=== PATIENT | male | born 1995 ===

== ENCOUNTER 2021-09-01 14:06 | Inpatient (IN) | payer SELFPAY ==
[~2021-09-01] VITALS: Ht 167.6 cm; Wt 89.3 kg
[2021-09-01 15:01] LABS: BASO % 0.3 % (0.0-2.0); EOS # 0.1 K/mm3 (0.0-0.7); EOS % 0.8 % (0.0-4.0); GRAN # 5.7 K/mm3 (1.4-6.5); GRAN % 77.5 % (42.2-75.2); LYMPH % 13.8 % (20.0-51.0); MEAN CELL VOLUME 85 fl (80.0-100.0); MEAN CORPUSCULAR HGB CONC 35 g/dl (33.0-37.0); MEAN PLATELET VOLUME 9.7 fl (7.4-10.4); MONO # 0.5 K/mm3 (0.1-0.6); MONO % 7.3 % (1.7-9.3); PLATELET COUNT 183 K/mm3 (130-400); RED BLOOD COUNT 2.26 M/mm3 (4.20-5.60); REDCELL DISTRIBUTION WIDTH-CV 12.3 % (11.5-14.5)
[2021-09-01 15:02] LABS: HEMATOCRIT 19.2 % (42.0-52.0); HEMOGLOBIN 6.7 g/dl (13.5-18.0); MEAN CORPUSCULAR HEMOGLOBIN 30 pg (27-31)
[2021-09-01 15:22] LABS: ALBUMIN 3.5 gm/dL (3.5-5.0); BILIRUBIN,TOTAL 0.7 mg/dL (0.2-1.2); CALCIUM 6.1 mg/dL (8.4-10.2); CREATININE, serum 15.65 mg/dL (0.72-1.25); MAGNESIUM 2.1 mg/dL (1.6-2.6); POTASSIUM 3.7 mmol/L (3.5-4.5); TOTAL PROTEIN 6.7 gm/dL (6.2-8.1)
[2021-09-01 16:25] LABS: COLLECTION METHOD CLEAN CATCH
[2021-09-01 16:36] LABS: PH 7 (5-8); SQUAMOUS EPITHELIAL None Seen /hpf (0-10); URINE APPEARANCE Clear (CLEAR/HAZY); URINE BACTERIA None Seen /hpf (NONE SEEN); URINE BILIRUBIN Negative (NEGATIVE); URINE BLOOD 2+ (NEGATIVE); URINE COLOR Straw (YELLOW); URINE GLUCOSE Negative (NEGATIVE); URINE KETONE Negative (NEGATIVE); URINE LEUKOCYTE ESTERASE Negative (NEGATIVE); URINE NITRATE Negative (NEGATIVE); URINE PROTEIN(semi-quant) 3+ (NEGATIVE); URINE UROBILINOGEN Negative (NEGATIVE)
[2021-09-01 17:33] LABS: CREATININE, serum 15.63 mg/dL (0.72-1.25)
[2021-09-01 17:34] LABS: FRACTIONAL EXCRETION OF NA+ 21.14 %
[2021-09-01 17:37] VITALS: BP 153/93; PULSE 76; TEMP 99
--- NOTE | 2021-09-01 18:19 | NUR ---
Patient arrived to the unit by bed, alert and oriented x 4, HTN. Denies pain at the moment. Some crams in BLE. He states they go away when he stands up. Continue receiving NS. Assessment intake completed.
--- NOTE | 2021-09-01 18:59 | NUR ---
Blood transusion consent was signed, report given to night RN. Pt aware of blood need.
[2021-09-01 20:03] VITALS: BP 155/90; PULSE 75; TEMP 98.6
[2021-09-01 22:55] VITALS: BP 124/72; PULSE 69; TEMP 98.1
[2021-09-01 23:10] VITALS: BP 144/91; PULSE 66; TEMP 98.5
--- NOTE | 2021-09-01 23:14 | NUR ---
BLOOD TRANSFUSION STARTED AT 60ML/HR. PATIENT TOLERATED THE RATE FOR 15 MINUTES AND INCREASED RATE TO 120ML/HR. WILL FREQUENTLY CHECK ON PATIENT. IS AT BEDSIDE. PT DENIES PAIN, SHORTNESS OF BREATH AND ALL VSS. NO OTHER CONCERNS AT THIS TIME.
[2021-09-01 23:40] VITALS: BP 148/92; PULSE 71; TEMP 98.5
[2021-09-02 00:40] VITALS: BP 145/99; PULSE 64; TEMP 98.3
[2021-09-02 01:01] VITALS: BP 145/99; PULSE 61; TEMP 98.3
[2021-09-02 02:18] LABS: HEMATOCRIT 20.4 % (42.0-52.0); HEMOGLOBIN 7.2 g/dl (13.5-18.0)
--- NOTE | 2021-09-02 09:08 | NUR ---
Patient is resting in bed with at the bedside, alert and oriented x 4, VSS. States he had a good night. No cramps at night. Telemetry in place NSR. Receiving 100 ml/hr NS. Assessment completed, meds provided. No other needs at this time. Call light within reach.
--- NOTE | 2021-09-02 09:21 | NUR ---
cattle care worker met with patient to complete intake and discuss discharge plan. Patient's life partner Alejandra ([phone]) present at bedside. In addition is the patient's brother. Patient lives in [place], [place] and is here for work. Patient is independent with his ADL's and does not utilize any DME to assist with mobility. He has no home oxygen needs. Patient does not have a PCP back home. Patient utilizes [facility] on [address] [place] [address] in [place] for prescriptions. Patient does not have a DPOA-HC established. He is planning on being discharged later today. Discharge plan: Home
--- NOTE | 2021-09-02 10:17 | NUR ---
Initial visit; Patient and family acknowledged [employer] Super[employer] for offering prayer for patient although he is Afghan speaking. [employer] Super[employer] left them smiling.
[2021-09-02 10:57] LABS: BASO % 0.4 % (0.0-2.0); EOS # 0.1 K/mm3 (0.0-0.7); EOS % 1.1 % (0.0-4.0); GRAN # 4.2 K/mm3 (1.4-6.5); GRAN % 75.8 % (42.2-75.2); LYMPH # 0.9 K/mm3 (1.2-3.4); LYMPH % 15.6 % (20.0-51.0); MEAN CELL VOLUME 86 fl (80.0-100.0); MEAN CORPUSCULAR HGB CONC 35 g/dl (33.0-37.0); MEAN PLATELET VOLUME 10.1 fl (7.4-10.4); MONO # 0.4 K/mm3 (0.1-0.6); MONO % 6.9 % (1.7-9.3); PLATELET COUNT 163 K/mm3 (130-400); RED BLOOD COUNT 3.44 M/mm3 (4.20-5.60); REDCELL DISTRIBUTION WIDTH-CV 12.4 % (11.5-14.5)
[2021-09-02 10:58] LABS: ALBUMIN 3.4 gm/dL (3.5-5.0); CALCIUM 7.1 mg/dL (8.4-10.2); CREATININE, serum 15.47 mg/dL (0.72-1.25); HEMATOCRIT 29.4 % (42.0-52.0); MAGNESIUM 2.3 mg/dL (1.6-2.6); MEAN CORPUSCULAR HEMOGLOBIN 30 pg (27-31); PHOSPHOROUS 9.4 mg/dL (2.3-4.7); POTASSIUM 3.8 mmol/L (3.5-4.5)
[2021-09-02 10:59] LABS: HEMOGLOBIN 10.3 g/dl (13.5-18.0)
--- NOTE | 2021-09-02 11:22 | NUR ---
Arvin shipman to Dr Harry Crane to notify Chloride result 85 and labs results in place.
--- NOTE | 2021-09-02 12:52 | NUR ---
Romel collaborated with Luis A and it is unknown what the etiology of his condition is from and may need a possible bx/transplant later in life. 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
--- NOTE | 2021-09-02 18:30 | NUR ---
THE PATIENT HAS LOTS OF QUESTIONS, IT WAS ADVISED THAT THEY WRITE ALL THEIR QUESTIONS DOWN TO DISCUSS WITH THE DOCTORS TOMORROW. THE PATIENT'S DID ASK HOW THE BLOOD WORK WAS, THIS RN LET THEM KNOW THAT THE LABS HAVE NOT CHANGED MUCH, SHOWING LITTLE IMPROVEMENT. THE PATIENT DOES NOT SEEM INTERESTED IN UNDERSTANDING, BUT THE IS VERY CONCERNED. NO OTHER CONCERNS AT THIS TIME. PT DENIES PAIN, SOB AND HAS NO REQUESTS. WILL RETURN FOR ASSESSMENT AND MEDICATIONS.
--- NOTE | 2021-09-02 19:04 | NUR ---
Patient continues in bed with at the beside. Receiving NS 100ML/HR. Denies cramps in his legs. He reported some swelling in face after medication was provided in the afternnoon Benadryl provided. No further episodes. Report given to katiuska LUO.
[2021-09-02 20:45] VITALS: BP 141/97; PULSE 72; TEMP 97.7
[2021-09-03 00:59] VITALS: BP 133/79; PULSE 63; TEMP 98.6
[2021-09-03 04:05] VITALS: BP 147/87; PULSE 71; TEMP 98.8
[2021-09-03 07:43] LABS: BASO % 0.5 % (0.0-2.0); EOS # 0.1 K/mm3 (0.0-0.7); EOS % 1.4 % (0.0-4.0); GRAN # 4.9 K/mm3 (1.4-6.5); GRAN % 76.7 % (42.2-75.2); LYMPH # 0.9 K/mm3 (1.2-3.4); LYMPH % 14.5 % (20.0-51.0); MEAN CELL VOLUME 84 fl (80.0-100.0); MEAN CORPUSCULAR HGB CONC 35 g/dl (33.0-37.0); MEAN PLATELET VOLUME 10.3 fl (7.4-10.4); MONO # 0.4 K/mm3 (0.1-0.6); MONO % 6.7 % (1.7-9.3); PLATELET COUNT 188 K/mm3 (130-400); RED BLOOD COUNT 2.91 M/mm3 (4.20-5.60); REDCELL DISTRIBUTION WIDTH-CV 12.2 % (11.5-14.5)
[2021-09-03 07:44] LABS: HEMATOCRIT 24.5 % (42.0-52.0); HEMOGLOBIN 8.6 g/dl (13.5-18.0); MEAN CORPUSCULAR HEMOGLOBIN 30 pg (27-31)
[2021-09-03 07:46] VITALS: BP 148/89; PULSE 77; TEMP 98
[2021-09-03 08:07] LABS: ALBUMIN 3.2 gm/dL (3.5-5.0); CREATININE, serum 15.37 mg/dL (0.72-1.25); MAGNESIUM 2.2 mg/dL (1.6-2.6); PHOSPHOROUS 9.1 mg/dL (2.3-4.7); POTASSIUM 3.6 mmol/L (3.5-4.5)
[2021-09-03] MEDS ORDERED: APRESOLINE 10MG10 MG PO (10:38)
[2021-09-03] MEDS ORDERED: NORVASC 10MG10 MG PO (10:39)
[2021-09-03 11:11] VITALS: BP 156/86; PULSE 83; TEMP 98.2
--- NOTE | 2021-09-03 11:20 | NUR ---
Clarification on hydralazine order due to possible allergic reaction yesterday. JOESPH Lewis states to continue to monitor and administer hydralazine as it didnt appear to be a true allergy.
[2021-09-03 15:19] VITALS: BP 149/88; PULSE 77; TEMP 97.9
--- NOTE | 2021-09-03 17:42 | NUR ---
DISCHARGE INSTRUCTIONS GIVEN, FAMILY AT BEDSIDE TO HELP WITH TRANSLATION, ALL QUESTIONS ANSWERED. PT PACKING BELONGINGS AND WILL BE ESCORTED DOWN. WILL D/C FROM SYSTEM.
== END 2021-09-03 17:45 | disposition home or self-care (01) | DRG 683 ==
LOC: COL.ER 14:06 → MEDICAL 16:38 → EDBEDREQ 16:46 → MEDICAL 21:00
PROVIDERS: Internal Medicine Nephrology; Physician Assistant; ADMIT Internal Medicine
PROC: 30233N1 Transfusion of Nonautologous Red Blood Cells into Peripheral Vein, Percutaneous Approach (ICD-10-PCS; principal; 2021-09-01)
DX: N17.9 Acute kidney failure, unspecified (principal); E87.1 Hypo-osmolality and hyponatremia; E87.2 Acidosis; R25.2 Cramp and spasm; E87.8 Other disorders of electrolyte and fluid balance, not elsewhere classified; E83.51 Hypocalcemia; E83.39 Other disorders of phosphorus metabolism; I12.9 Hypertensive chronic kidney disease with stage 1 through stage 4 chronic kidney disease, or unspecified chronic kidney disease; N18.9 Chronic kidney disease, unspecified; D63.1 Anemia in chronic kidney disease; Z90.49 Acquired absence of other specified parts of digestive tract; Z87.891 Personal history of nicotine dependence
CPT/HCPCS: 99223-AI; 99233-AI; 99239; A4314; J1200; J7030; P9016